=== PATIENT | male | born 1955 | race African-American/Black ===

== ENCOUNTER → 2016-05-31 11:20 | Outpatient (CLI) | payer OTHER ==
[2014-12-02 17:59] VITALS: BMI 28.8
[~2016-05-31 11:20] MED LIST: ADVAIR 250/501 DISK INH; CLARITIN 10 MG10 MG PO; FLUTICASONE PRO16 GM NASAL; HYDROCODONE-APA1 TAB PO; IPRAT-ALBUT 0.5-3 ML UPD; LEVAQUIN500 MG PO; NICODERM C1 PATCH .1 TRANSDERM; PRILOSEC20 MG PO; SINGULAIR10 MG PO; SYMBICORT 16010.2 GM INH; TESSALON PERLE100 MG PO
== END | disposition home or self-care (01) ==
LOC: D.CT 11:20 → D.RT 14:00
DX: J84.9 Interstitial pulmonary disease, unspecified (principal)

== ENCOUNTER → 2016-11-15 08:40 | Outpatient (CLI) | payer OTHER ==
[2014-12-02 17:59] VITALS: BMI 28.8
== END | disposition home or self-care (01) ==
LOC: D.RT 08:40
DX: J84.9 Interstitial pulmonary disease, unspecified (principal)

== ENCOUNTER → 2017-05-18 10:55 | Outpatient (CLI) | payer MEDICARE, OTHER ==
[2014-12-02 17:59] VITALS: BMI 28.8
== END | disposition home or self-care (01) ==
LOC: D.RT 09:00
DX: J84.10 Pulmonary fibrosis, unspecified (principal)

== ENCOUNTER → 2018-04-30 10:28 | Outpatient (CLI) | payer MEDICARE, OTHER ==
[2014-12-02 17:59] VITALS: BMI 28.8
[2018-04-30 11:08] LABS: ALBUMIN 3.4 g/dL (3.4-5.0); BILIRUBIN - DIRECT 0.07 mg/dL (0.00-0.30); BILIRUBIN - INDIRECT 0.05 mg/dL (0.00-1.00); BILIRUBIN - TOTAL 0.12 mg/dL (0.2-1.3); PROTEIN - SERUM 7.5 g/dL (6.4-8.2)
== END | disposition home or self-care (01) ==
LOC: D.LAB 11-15 10:00 → D.RT 11-15 10:00 → D.CT 11-15 10:00 → D.LAB 11-15 11:45 → D.CT 01-25 10:00 → D.LAB 01-25 10:00 → D.RT 01-25 10:00 → D.CT 01-25 11:00 → D.RT 10:28
PROVIDERS: Internal Medicine Pulmonary Disease
DX: J84.9 Interstitial pulmonary disease, unspecified (principal)

== ENCOUNTER → 2018-10-29 10:00 | Outpatient (CLI) | payer MEDICARE, OTHER ==
[2014-12-02 17:59] VITALS: BMI 28.8
== END | disposition home or self-care (01) ==
LOC: D.RT 09:00
PROVIDERS: ATTEND Internal Medicine Pulmonary Disease
DX: J44.9 Chronic obstructive pulmonary disease, unspecified (principal)

== ENCOUNTER → 2019-01-29 09:46 | Outpatient (CLI) | payer MEDICARE, OTHER ==
[2014-12-02 17:59] VITALS: BMI 28.8
[2019-01-30 11:10] LABS: HEPATITIS C ANTIBODY <0.1 S/CO RAT (0.0-0.9)
== END | disposition home or self-care (01) ==
LOC: D.LAB 08:00 → D.RT 11:00
PROVIDERS: ATTEND Internal Medicine Pulmonary Disease
DX: J84.10 Pulmonary fibrosis, unspecified (principal)

== ENCOUNTER → 2019-12-16 08:20 | Outpatient (CLI) | payer MEDICARE, OTHER ==
[2014-12-02 17:59] VITALS: BMI 28.8
== END | disposition home or self-care (01) ==
LOC: D.CT 08:20 → D.RT 10:00
PROVIDERS: ATTEND Internal Medicine Pulmonary Disease
DX: J84.112 Idiopathic pulmonary fibrosis (principal)

== ENCOUNTER → 2019-12-16 19:59 | Outpatient (CLI) | payer MEDICARE, OTHER ==
[2014-12-02 17:59] VITALS: BMI 28.8
[2019-12-16 20:48] LABS: ALBUMIN 3.6 g/dL (3.4-5.0); BILIRUBIN - DIRECT 0.06 mg/dL (0.00-0.30); BILIRUBIN - INDIRECT 0.17 mg/dL (0.00-1.00); BILIRUBIN - TOTAL 0.23 mg/dL (0.2-1.3); PROTEIN - SERUM 8.1 g/dL (6.4-8.2)
== END | disposition home or self-care (01) ==
LOC: D.LABREF 19:59
PROVIDERS: ATTEND Internal Medicine Pulmonary Disease
DX: J84.112 Idiopathic pulmonary fibrosis (principal)

== ENCOUNTER → 2020-09-15 10:43 | Outpatient (CLI) | payer MEDICARE, OTHER ==
[2014-12-02 17:59] VITALS: BMI 28.8
== END | disposition home or self-care (01) ==
LOC: D.CT 10:43
PROVIDERS: ATTEND Internal Medicine Pulmonary Disease
DX: J44.9 Chronic obstructive pulmonary disease, unspecified (principal); J84.112 Idiopathic pulmonary fibrosis